=== PATIENT | female | born 1955 | race Caucasian/White ===

== ENCOUNTER 2023-08-19 13:49 | Observation (INO) | payer MEDICARE, SELFPAY ==
[2023-08-19] VITALS (8 sets, daily range): BP systolic 136–172; BP diastolic 67–98; PULSE 62–83; RESP 16–19; TEMP 36.9–37; O2SAT 93–100; BMI 34.8
--- NOTE | ~2023-08-19 | CT_ITS ---
EXAMINATION: CT abdomen pelvis w con DATE: 08/19/2023 15:57 INDICATION: Right upper quadrant abdominal pain. Right flank pain. Vomiting. TECHNIQUE: Computed tomography (CT) of the abdomen and pelvis was performed with 100 mL Omnipaque 350 intravenous contrast. Automated exposure control and iterative reconstruction technique were employe d. The dose-length product was 1331.09 mGy-cm. COMPARISON: CT abdomen and pelvis 06/10/2009 FINDINGS: The visualized portions of the lung bases demonstrate mild bronchiectasis. There is mild se ptal thickening bilaterally. Calcified left lung nodules and calcified left hilar lymph nodes are con sistent with old granulomatous disease. There are few nodules in the lungs measuring up to 4 mm, like ly benign. No pleural effusion. The heart size is normal. No pericardial effusion. There is a small s liding hiatal hernia. The liver, spleen, pancreas, and adrenal glands are normal. There are changes o f cholecystectomy. There are cysts in the kidneys measuring up to 1.7 cm on the right. There are appr oximately 6 stones in right kidney measuring up to 4 mm. There is moderate right hydronephrosis. Ther e is a 5 mm stone in proximal right ureter. There is a delayed right-sided contrast nephrogram. There is a 2 mm stone in left kidney. There are bilateral inguinal hernias containing fat. There are no di lated loops of bowel. The appendix is normal. There are no pathologically enlarged lymph nodes. There is no free intraperitoneal fluid. There is mild thoracic and lumbar spondylosis. IMPRESSION: 1. 5 mm stone in proximal right ureter with moderate right hydronephrosis. 2. Bilateral nonobstructing kidney stones. Reviewed, dictated and finalized at location E.
--- NOTE | ~2023-08-19 | XR_ITS ---
Supine and upright views of the abdomen Clinical history: Right ureteral stone COMPARISON: 08/19/2023 Findings: Bowel gas pattern is nonspecific. No evidence for obstruction or free air. Questionable 3 m m mid right ureteral stone. Cholecystectomy clips noted. Osseous structures are intact. Impression: Questionable 3 mm mid right ureteral stone noted. Reviewed, dictated and finalized at [facility]. Impression: Questionable 3 mm mid right ureteral stone noted.
--- NOTE | ~2023-08-19 | XR_ITS ---
EXAMINATION: XR abdomen/kub 1V DATE: 08/19/2023 18:31 INDICATION: Right ureteral stone. TECHNIQUE: A supine view of the abdomen on 2 radiographs was obtained. COMPARISON: CT abdomen and pelvis 08/19/2023 FINDINGS: There is contrast in the renal collecting system. There is moderate right hydronephrosis an d proximal hydroureter. There are no dilated loops of bowel. Surgical clips in the right upper quadra nt are likely from cholecystectomy. IMPRESSION: 1. Moderate right hydronephrosis and proximal hydroureter. Reviewed, dictated and finalized at location E.
[2023-08-19 14:42] LABS: Basophils Absolute Auto 0.1 K/mm3 (0.0-0.1); Basophils Percent Auto 0.5 % (0.2-1.2); Eosinophils Absolute Auto 0.1 K/mm3 (0-0.3); Hematocrit 44.8 % (37.0-47.0); Hemoglobin 14.6 g/dL (12.0-15.0); Immature Granulocyte Absolute 0.04 K/mm3 (0.00-0.031); Immature Granulocyte Percent A 0.3 % (0-0.5); Lymphocytes Absolute Auto 2.03 K/mm3 (0.9-3.2); Lymphocytes Percent Auto 17.1 % (18.3-44.2); Mean Corpuscular HGB Conc 32.6 g/dl (32-36); Mean Corpuscular Hemoglobin 27.9 pg (26-34); Mean Corpuscular Volume 85.5 fl (80-100); Mean Platelet Volume 9.8 fl (7.4-10.4); Monocytes Absolute Auto 0.7 K/mm3 (0.1-0.6); Neutrophils Absolute Auto 8.9 K/mm3 (1.3-6.7); Neutrophils Percent Auto 75.1 % (45.5-73.1); Platelet Count Result 242 k/mm3 (150-375); Red Blood Count 5.24 M/mm3 (4.2-5.4); Red Cell Distribution Width 14.1 % (11.5-14.5); White Blood Count 11.9 K/mm3 (4.5-10.0)
[2023-08-19 14:51] LABS: Alanine Aminotransferase 44 U/L (6-35); Albumin Level 4.7 g/dL (3.5-5.1); Alkaline Phosphatase 113 U/L (38-126); Anion Gap 11 mmol/L (4-12); Aspartate Amino Transferase 45 U/L (14-36); Bilirubin,Total 0.7 mg/dL (0.2-1.3); Blood Urea Nitrogen 17 mg/dL (7-17); Calcium 9.6 mg/dL (8.4-10.2); Carbon Dioxide 27 mmol/L (22-30); Chloride 102 mmol/L (98-107); Estimated CRCL calculation 54 ml/min; Estimated Glomerular Filt Rate 55; Glucose 154 mg/dL (65-110); Lipase 179 U/L (23-300); Potassium 4.3 mmol/L (3.4-5.0); Sodium 140 mmol/L (137-145)
--- NOTE | 2023-08-19 15:20 | ED.ABDPAIN ---
HPI - Abdominal Pain General Chief Complaint: Abdominal Pain Stated Complaint: right flank pain Time Seen by Provider: 08/19/23 14:39 History of Present Illness HPI narrative: 67-year-old female presenting with right flank pain. Patient states that this morning she developed right flank pain that goes into her right abdomen. Associated with nausea and vomiting. States that she has a history of kidney stones and this feels somewhat similarly. Denies hematuria or dysuria. Denies chest pain or shortness of breath. No fevers. Reports several episodes of diarrhea. Has had a cholecystectomy, hysterectomy. Unsure if she has had an appendectomy. Related Data Home Medications Medication Instructions Recorded Confirmed Calcium-Vitamin D 1,000 mcg BYMOUTH DAILY 08/19/23 08/19/23 aspirin 81 mg capsule 81 mg PO DAILY 08/19/23 08/19/23 metformin 500 mg tablet,extended 500 mg PO DAILY 08/19/23 08/19/23 release 24 hr multivitamin (Daily Multi-Vitamin 1 tablet PO DAILY 08/19/23 08/19/23 tablet) Allergies Allergy/AdvReac Type Severity Reaction Status Date / Time Penicillins Allergy Unknown Rash Verified 08/19/23 13:58 levofloxacin [From Levaquin] AdvReac Intermediate Palpitation Verified 08/20/23 08:03 s codeine AdvReac Unknown Headache Verified 08/20/23 08:03 Review of Systems Review of Systems: All systems reviewed & are unremarkable except as noted in HPI and below PMFSH Past Medical History Medical History (Updated 08/20/23 @ 09:04 by Ernestine Georges PA-C) Nephrolithiasis Surgical History Surgical History (Updated 08/20/23 @ 09:03 by Ernestine Georges PA-C) History of lithotripsy Family History Family History Mother Family history of osteoporosis Hypertension Father Family history of elevated blood lipids Family history of diabetes mellitus in first degree relative Family history of coronary artery disease Social History Social History Smoking status: Never smoker Alcohol intake: never Substance use: never Do You Feel Safe in your Home?: Yes Lack of Transportation: No Lack of Food: Never True Current Housing: I Have Housing Concerned About Future Housing: No Difficulty Paying Gas/Electric Bills: No Difficulty Paying for Meds: No Currently Unemployed: No Education: Master's Degree or Higher Difficulty w/ Childcare or Family Care: No Spiritual care concerns: No Exam Narrative: GENERAL: Uncomfortable appearing, pleasant cooperative HEAD: Normocephalic, atraumatic. EYES: PERRLA and EOMI. ENT: Mucous membranes moist. NECK: Supple. CHEST: Clear to auscultation. No respiratory distress. HEART: Regular rate and rhythm ABDOMEN: Soft, +tender in epigastrium into RUQ, +R CVA tenderness, no guarding or rebound EXTREMITIES: Normal range of motion. SKIN: Warm, dry, no rash. NEURO: No focal deficits. Alert and oriented x3. PSYCH: Normal mood and affect. Course Vital Signs Vital signs: Vital Signs Temperature 98.4 F 08/19/23 13:55 Pulse Rate 65 08/19/23 13:55 Respiratory Rate 18 08/19/23 13:55 Blood Pressure 171/98 H 08/19/23 13:55 Pulse Oximetry 100 08/19/23 13:55 Oxygen Delivery Room Air 08/19/23 13:55 Temperature 98.4 F 08/20/23 06:00 Pulse Rate 64 08/20/23 06:00 Respiratory Rate 20 08/20/23 06:00 Blood Pressure 124/65 08/20/23 06:00 Pulse Oximetry 96 08/20/23 06:00 Oxygen Delivery Room Air 08/20/23 08:00 MDM - Abdominal Pain MDM Narrative Medical decision making narrative: 67-year-old female presenting with right-sided flank and abdominal pain associated with diarrhea and vomiting. Vitals are within normal limits. Exam remarkable for the above. plan for blood work, urine, CT abdomen pelvis. Blood work with mild leukocytosis. CT abdomen pelvis with a right-sided proximal
[2023-08-19] MEDS: SODIUM CHLORIDE 0.9% IV 1,000 ML 999 ML IV CONT (15:27)
[2023-08-19] MEDS: ONDANSETRON INJ 4 MG/2 ML VIAL IV PUSH ×3 (15:28→21:51)
[2023-08-19] MEDS: HYDROmorphone HCL INJ (*CRX) 1 MG/ML SYR IV PUSH ×2 (15:28→23:44)
[2023-08-19] MEDS: HYDROmorphone HCL INJ (*CRX) 1 MG/ML SYR 2 MG IV PUSH (16:11)
--- NOTE | 2023-08-19 16:15 | PC.NURSE ---
pt unable to urinate at this time. pt refusing straight cath. pt states she will press her call light when she can provide urine sample.
[2023-08-19 17:26] LABS: Appearance Urine Clear (Clear); Bacteria Urine 1+ /hpf; Bilirubin Urine Negative (Negative); Blood Urine 1+ (Negative); Color Urine Yellow (Yellow); Glucose Urine UA Negative (Negative); Ketones Urine Trace mg/dL (Negative); Leukocyte Esterase Ur 1+ LEU/UL (Negative); Nitrate Urine Negative (Negative); Protein Urine Negative (Negative); Specific Grav Ur 1.042 (1.001-1.035); Squamous Epithelial Cell Urine Few /hpf (Few); Urobilinogen Urine 0.2 mg/dL (<2.0); WBC Urine 21-50 /hpf (0-3)
[2023-08-19 17:27] LABS: Add Urine Microscopic? YES
[2023-08-19 21:16] LABS: Glucose Point of Care 166 mg/dl (65-105)
--- NOTE | 2023-08-19 21:24 | ADMGEN ---
This patient, Maribeth Upton, was admitted to Medical Room 345-01. Patient/family oriented to hospital policies and general routines including ID bracelet, bed and alarms, visiting hours, pain management, procedures, bathroom and other care routines, personal items, smoking policy, room service/diet, and visiting hours. Information on how to activate the Rapid Response Team has been discussed. Patient/Family are encouraged to report perceived risks to care and to ask questions if they do not understand what they are told or what they should do.
--- NOTE | 2023-08-19 23:01 | PM.IMHP ---
H&P: HPI History of Present Illness Date/Time: 08/19/23 23:01 Chief Complaint: Abdominal pain Narrative: Patient is a 67-year-old female presented with right flank pain patient has had kidney stones in the past multiple times and she said it feeling is exactly the same but this time it is worse patient's pain radiating all the way to the groin with some feeling of urgency and frequency of urination associated with nausea and vomiting. Patient denied any hematuria dysuria no shortness of breath no chest pain no diarrhea. No no fever chills at this time Review of Systems Review of Systems: All systems reviewed & are unremarkable except as noted in HPI and below PMFSH Family History Family History Mother Family history of osteoporosis Hypertension Father Family history of elevated blood lipids Family history of diabetes mellitus in first degree relative Family history of coronary artery disease Social History Social History Smoking status: Never smoker Alcohol intake: never Substance use: never Do You Feel Safe in your Home?: Yes Lack of Transportation: No Lack of Food: Never True Current Housing: I Have Housing Concerned About Future Housing: No Difficulty Paying Gas/Electric Bills: No Difficulty Paying for Meds: No Currently Unemployed: No Education: Master's Degree or Higher Difficulty w/ Childcare or Family Care: No Spiritual care concerns: No Meds Home Medications and Allergies Home Medications Medication Instructions Recorded Confirmed Type Calcium-Vitamin D 1,000 mcg BYMOUTH DAILY 08/19/23 08/19/23 History aspirin 81 mg capsule 81 mg PO DAILY 08/19/23 08/19/23 History metformin 500 mg tablet,extended 500 mg PO DAILY 08/19/23 08/19/23 History release 24 hr multivitamin (Daily Multi-Vitamin 1 tablet PO DAILY 08/19/23 08/19/23 History tablet) Allergies Allergy/AdvReac Type Severity Reaction Status Date / Time levofloxacin [From Levaquin] Allergy Intermediate Palpitation Verified 08/19/23 21:26 s codeine Allergy Unknown Headache Verified 08/19/23 13:58 Penicillins Allergy Unknown Rash Verified 08/19/23 13:58 Vital Signs Vital Signs - 24 hr 08/19/23 13:55 08/19/23 15:34 08/19/23 17:20 Temperature 36.9 C Pulse Rate 65 63 81 Respiratory Rate 18 19 18 Blood Pressure 171/98 H 148/67 H 141/79 H Pulse Oximetry 100 99 94 Oxygen Delivery Room Air 08/19/23 18:45 08/19/23 19:19 08/19/23 19:33 Temperature Pulse Rate 83 78 68 Respiratory Rate 16 18 18 Blood Pressure 152/72 H 142/73 H 142/73 H Pulse Oximetry 98 96 94 Oxygen Delivery 08/19/23 20:42 08/19/23 21:16 Temperature 37.0 C Pulse Rate 62 77 Respiratory Rate 18 18 Blood Pressure 136/77 172/82 H Pulse Oximetry 93 98 Oxygen Delivery Exam Narrative: GENERAL: Well appearing, no acute distress. HEAD: Normocephalic, atraumatic. NECK: Supple. No adenopathy, no masses. RESPIRATORY: respirations nonlabored. , no rales, wheezing. CARDIOVASCULAR: Regular rate and rhythm without murmurs, . Peripheral pulses 2+ and equal bilaterally. ABDOMINAL: Soft, nontender, nondistended, no hepatosplenomegaly. Normoactive BS. MUSCULOSKELETAL: no Epigastric and no hypochondrial tenderness SKIN: Warm, dry, NEURO: A&O X3. Moves all extremities H&P: Results Labs Labs: Short CBC 08/19/23 Range/Units 14:32 WBC 11.9 H (4.5-10.0) K/mm3 Hgb 14.6 (12.0-15.0) g/dL Hct 44.8 (37.0-47.0) % Plt Count 242 (150-375) k/mm3 BMP 08/19/23 14:32 Sodium 140 Potassium 4.3 Chloride 102 Carbon Dioxide 27 BUN 17 Creatinine 1.00 Glucose 154 H Calcium 9.6 Liver Function 08/19/23 Range/Units 14:32 Total Bilirubin 0.7 (0.2-1.3) mg/dL AST 45 H (14-36) U/L ALT 44 H (6-35) U/L Alkaline Phosphatase 113 (38-126) U/L Albumin
[2023-08-19 23:26] LABS: Hemoglobin 14.4 g/dL (12.0-15.0); Mean Corpuscular HGB Conc 32.7 g/dl (32-36); Mean Corpuscular Hemoglobin 27.9 pg (26-34); Mean Corpuscular Volume 85.1 fl (80-100); Mean Platelet Volume 9.4 fl (7.4-10.4); Platelet Count Result 241 k/mm3 (150-375); Red Blood Count 5.17 M/mm3 (4.2-5.4); White Blood Count 15.5 K/mm3 (4.5-10.0)
[2023-08-19 23:37] LABS: Alanine Aminotransferase 40 U/L (6-35); Albumin Level 4.4 g/dL (3.5-5.1); Alkaline Phosphatase 93 U/L (38-126); Anion Gap 11 mmol/L (4-12); Aspartate Amino Transferase 38 U/L (14-36); Bilirubin,Total 0.8 mg/dL (0.2-1.3); Blood Urea Nitrogen 15 mg/dL (7-17); Calcium 9.4 mg/dL (8.4-10.2); Carbon Dioxide 25 mmol/L (22-30); Chloride 102 mmol/L (98-107); Estimated CRCL calculation 78 ml/min; Estimated Glomerular Filt Rate > 60; Glucose 158 mg/dL (65-110); Potassium 4.2 mmol/L (3.4-5.0); Sodium 138 mmol/L (137-145)
[2023-08-19] MEDS: SODIUM CHLORIDE 0.9% IV 1,000 ML 100 ML IV CONT (23:44)
[2023-08-20 06:00] VITALS: BP 124/65; PULSE 64; RESP 20; TEMP 36.9; O2SAT 96
[2023-08-20] MEDS: HYDROmorphone HCL INJ (*CRX) 1 MG/ML SYR IV PUSH (06:44)
--- NOTE | 2023-08-20 08:55 | WPDURCON ---
Assessment and Plan Assessment and plan (1) Ureterolithiasis: Code(s): N20.1 - Calculus of ureter Status: Acute Assessment and Plan: 5 mm proximal-mid right ureteral stone visible on KUB. Reviewed options for stent placement today versus outpatient ESWL. Patient opts for right ESWL to be completed 08/22/23 at outpatient surgery center with Dr. Corona. Discussed risks vs benefits of procedures and she agrees to proceed. Will plan for discharge later this afternoon as pain remains well controlled. Will discharge with course of analgesics until surgery scheduled in 2 days (2) Hydronephrosis, right: Code(s): N13.30 - Unspecified hydronephrosis Status: Acute Assessment and Plan: Secondary to above, planning for definitive stone management 08/22/23. (3) Abnormal urinalysis: Code(s): R82.90 - Unspecified abnormal findings in urine Status: Acute Assessment and Plan: UA slightly abnormal with 1+ leukocytes and 21-50 WBC, negative nitrites. Not overtly suspicious for infection and she is asymptomatic. Received IV Levaquin during admission. Will plan to discharge with course of Bactrim which she will continue until scheduled procedure. Urology Consult Note HPI Date Seen: 08/20/23 Requesting Physician: Leticia Starr MD Primary Care Provider: UNKNOWN,DOCTOR Consult Narrative Narrative: Maribeth Upton is a 67 year old female with multiple prior kidney stones requiring lithotripsy, currently established with Dr. Jacob, who is seen in consultation for a right proximal ureteral stone. The patient reports that yesterday morning around 10:00 a.m. while at work, she had onset of severe right flank pain that progressively worsened. She also had nausea and vomiting. She presented to the emergency department yesterday afternoon. On arrival, her vital signs were stable and she was afebrile, WBC minimally elevated at 11.9, creatinine 1.0, UA abnormal with positive leukocytes, 21-50 WBC. I urine cultures pending at this time. CT of the abdomen/pelvis was completed which showed multiple nonobstructing right renal stones 5 mm proximal right ureteral stone with moderate right hydronephrosis, and a small nonobstructing left renal stone. Follow-up KUB shows visible mid right ureteral stone. At the time of my evaluation, the patient is feeling slightly improved. Her pain has improved with analgesics and nausea and vomiting have resolved. She denies any episodes of dysuria or hematuria. Her WBC slightly increased today to 15.5. Long discussion regarding options for management. With improvement in her pain, if she would like to return home and follow-up for right ESWL tomorrow at outpatient surgery center. Review of Systems Review of Systems: All systems reviewed & are unremarkable except as noted in HPI and below PMFSH Past Medical History Medical History (Updated 08/20/23 @ 09:04 by Ernestine Georges PA-C) Nephrolithiasis Surgical History Surgical History (Updated 08/20/23 @ 09:03 by Ernestine Georges PA-C) History of lithotripsy Family History Family History Mother Family history of osteoporosis Hypertension Father Family history of elevated blood lipids Family history of diabetes mellitus in first degree relative Family history of coronary artery disease Social History Social History Smoking status: Never smoker Alcohol intake: never Substance use: never Do You Feel Safe in your Home?: Yes Lack of Transportation: No Lack of Food: Never True Current Housing: I Have Housing Concerned About Future Housing: No Difficulty Paying Gas/Electric Bills: No Difficulty Paying for Meds: No Currently Unemployed: No Education: Master's Degree or Higher Difficulty w/ Childcare or Family Care: No Spiritual care concern
[2023-08-20] MEDS: PANTOPRAZOLE 40 MG TABLET PO (08:57)
[2023-08-20] MEDS: ASPIRIN 81 MG ENTERIC TABLET PO (08:57)
[2023-08-20] MEDS: TAMSULOSIN HCL 0.4 MG CAPSULE PO (08:57)
[2023-08-20] MEDS: ENOXAPARIN 40 MG/0.4 ML SYRINGE SUB-Q (08:58)
--- NOTE | 2023-08-20 10:30 | PM.DS ---
DS: Admitting Diagnosis Discharge Date 08/20/2023 Admitting Diagnosis Renal calculi with hydronephrosis DS: Discharge Diagnosis Discharge Diagnosis (1) Ureterolithiasis: Code(s): N20.1 - Calculus of ureter Status: Acute (2) Abnormal urinalysis: Code(s): R82.90 - Unspecified abnormal findings in urine Status: Acute Plan Nephrolithiasis/hydronephrosis right kidney Urine cultures and sensitivity. Blood cultures the Continue IV hydration. Monitor CBC CMP monitor for sepsis. Monitor vital signs Start antibiotics with IV Levaquin Monitor for obstructive uropathy with pyelonephritis Urology consulted patient NPO after midnight maintained ureteral stent HTN Optimize BP meds will start hydralazine p.r.n. for systolic more than 160 Keeping BMI less than 25 Advised low-salt Routine Exercise History of diabetes will hold metformin and start insulin sliding scale if needed DVT prophylaxis. Lovenox GI prophylaxis. Protonix All records reviewed Discussed plan of care with the nursing staff and with the patient in detail. Answered all questions and concerns from the patient. All labs have been reviewed. Code status updated dictation may have been done utilizing a voice recognition system. Attempts have been made to correct errors. However, there may be uncorrected grammatical, spelling, and recognition errors present. DS: Summary Hospital Course Hospital Course: Patient is 67-year-old with a past medical history of kidney stones who presented to the ED with complaints of right flank pain. In the ED patient was noted to a 3-[address] and x-ray. Urology has been consulted and patient was offered either of a stent placed here or to have a lithotripsy done in the a.m.. Patient denies any current chest pain, shortness a breath, nausea, vomiting, diarrhea or constipation. She denies any urgency or frequency or pain with urination. Patient stated that she feels that she would rather go to her doctor or in [place] and have that done. Urology did see the patient has coordinated that with her. Labs and vital signs all remained stable UA does appear infectious will send patient home with antibiotics and was started on Levaquin here. Patient is currently stable for discharge for labs and vital signs. Patient will follow-up with her primary care provider and urologist. Lithotripsy has been set up for her on Friday per Urology. Spoke with patient about her parathyroid hormone. Did glands her labs which did not show any abnormalities at this time. Will continue the Flomax and encouraged patient to drink plenty of water. Status at Discharge Functional status at discharge: independent ambulation Overall status at discharge: patient is progressing back to baseline Time Spent with Patient Time attestation: Total time spent providing and/or coordinating discharge services:41 minutes Time spent: Greater than 30 minutes Specific discharge activities: Diagnostic testing, chart review, developing a treatment plan, education, care coordination documentation, physical exam, result review Exam Narrative: General: well-nourished, well-appearing 67-year-old female, sitting up in bed, comfortable, NARD Neuro: awake, alert and oriented x4, speech clear, no focal neuro deficits noted HEENMT: normocephalic, atraumatic, EOMI, sclerae anicteric, moist oral mucosa Respiratory: Clear to auscultation bilaterally without crackles, rhonchi or wheezes, nonlabored breathing Cardio: regular rate, regular rhythm with S1-S2 Abdomen: nondistended, normoactive bowel sounds, soft, nontender to palpation Extremities: no edema, erythema, or tenderness to palpation, DP pulses 2+ bilaterally Skin: no rashes or lesions, warm and dry Psych: appropriate mood and affect, judgment and insight intact DS: Data Data Completed and Pending Labs on day of discharge: Labs from last 24 hours 08/19/23 08/19/23 08/19/23 23:20 2
[2023-08-20] MEDS: ONDANSETRON INJ 4 MG/2 ML VIAL IV PUSH (13:54)
[2023-08-20 14:10] LABS: Appearance Urine Clear (Clear); Bacteria Urine None Seen /hpf; Bilirubin Urine Negative (Negative); Blood Urine Trace (Negative); Color Urine Yellow (Yellow); Glucose Urine UA Negative (Negative); Ketones Urine Negative (Negative); Leukocyte Esterase Ur Trace LEU/UL (Negative); Nitrate Urine Negative (Negative); Non Pathogenic Casts 0-2; Protein Urine Negative (Negative); Specific Grav Ur 1.017 (1.001-1.035); Squamous Epithelial Cell Urine None Seen /hpf (Few); Urobilinogen Urine 0.2 mg/dL (<2.0); WBC Urine 0-5 /hpf (0-3); pH Urine 5.5 (5.0-9.0)
[2023-08-20 14:34] LABS: Add Urine Microscopic? YES
== END 2023-08-20 14:34 | disposition home or self-care (01) ==
LOC: ANHED 15:37 → ANH3MED 22:16
PROVIDERS: Internal Medicine; Physician Assistant; Preventive Medicine Aerospace Medicine; Admitting Provider Family Medicine; Emergency Provider Emergency Medicine; Visit Provider Hospitalist
DX: N13.2 Hydronephrosis with renal and ureteral calculous obstruction (principal); R82.90 Unspecified abnormal findings in urine; Z79.82 Long term (current) use of aspirin; Z79.84 Long term (current) use of oral hypoglycemic drugs
CPT/HCPCS: 36415; 74018; 74177; 80053; 81001; 82948; 83690; 85025; 85027; 87040; 87086; 96361; 96372; 96374; 96375; 96376; 99285; A9270; G0378; J1170; J1650; J2405; J7030; Q9967